=== PATIENT | male | born 1980 | race American Indian/Alaskan Native ===

== ENCOUNTER 2017-01-12 03:23 | Emergency (ER) | payer SELFPAY ==
[2017-01-12 03:45] VITALS: BP 123/85
[2017-01-12 04:30] LABS: Basophils % (Auto) 0.5 % (0.0-1.8); Eosinophils % (Auto) 0.8 % (0.0-4.3); Hematocrit 45.7 % (35.5-45.6); Hemoglobin 15.2 gm/dl (11.8-15.2); Mean Corpuscular HGB Conc 33 % (32-34); Mean Corpuscular Hemoglobin 30 pg (28-32); Mean Corpuscular Volume 91 fl (84-94); Platelet Count 215 K/mm3 (140-440); Red Blood Count 5.04 M/mm3 (3.65-5.03); Red Cell Distribution Width 14.1 % (13.2-15.2); White Blood Count 5.9 K/mm3 (4.5-11.0)
[2017-01-12 04:44] LABS: Alanine Aminotransferase 27 units/L (7-56); Albumin 3.6 g/dL (3.9-5); Albumin/Globulin Ratio 0.8 %; Alkaline Phosphatase 74 units/L (35-129); Anion Gap 17 mmol/L; BUN/Creatinine Ratio 14.16; Bilirubin,Total 0.9 mg/dL (0.1-1.2); Blood Urea Nitrogen 17 mg/dL (9-20); Calcium 9.1 mg/dL (8.4-10.2); Carbon Dioxide 25 mmol/L (22-30); Chloride 97.9 mmol/L (98-107); Glucose 115 mg/dL (75-100); Lipase 33 units/L (13-60); Potassium 4.1 mmol/L (3.6-5.0); Sodium 136 mmol/L (137-145)
--- NOTE | 2017-01-14 01:07 | ED Elopement Review ---
ED Pt Elopement review - Results review Lab results: Laboratory Tests 01/12/17 01/12/17 04:12 04:12 WBC 5.9 RBC 5.04 H Hgb 15.2 Hct 45.7 H MCV 91 MCH 30 MCHC 33 RDW 14.1 Plt Count 215 Lymph % (Auto) 10.5 L Spencer % (Auto) 14.1 H Eos % (Auto) 0.8 Baso % (Auto) 0.5 Lymph # 0.6 L Spencer # 0.8 Eos # 0.0 Baso # 0.0 Seg Neutrophils % 74.1 H Seg Neutrophils # 4.4 Sodium 136 L Potassium 4.1 Chloride 97.9 L Carbon Dioxide 25 Anion Gap 17 BUN 17 Creatinine 1.2 Estimated GFR > 60 BUN/Creatinine Ratio 14.16 Glucose 115 H Calcium 9.1 Total Bilirubin 0.9 AST 29 ALT 27 Alkaline Phosphatase 74 Total Protein 8.0 Albumin 3.6 L Albumin/Globulin Ratio 0.8 Lipase 33 - Call Back decision Pt Call Back Decision: No action required
== END 2017-01-12 04:30 | disposition left against medical advice (07) ==
LOC: ED 03:23
DX: R10.9 Unspecified abdominal pain (principal); Z53.21 Procedure and treatment not carried out due to patient leaving prior to being seen by health care provider
CPT/HCPCS: 36415; 80053; 83690; 85025

== ENCOUNTER 2017-01-12 11:04 | Emergency (ER) | payer SELFPAY ==
[2017-01-12] MEDS ORDERED: NACL 0.9% 1000 ML 1,000 ML IV ONE ×2 (13:43→15:48)
[2017-01-12] MEDS ORDERED: PEPCID IV ONE (13:43)
[2017-01-12] MEDS ORDERED: BENTYL IM ONE (13:43)
[2017-01-12] MEDS ORDERED: ZOFRAN IV ONE (13:43)
[2017-01-12] MEDS ORDERED: NACL ONE (13:44)
--- NOTE | 2017-01-12 13:45 | Emergency Department Report ---
ED General Adult HPI - General Chief complaint: Abdominal Pain Stated complaint: SEVERE ABD PAIN Time Seen by Provider: 01/12/17 13:27 Source: patient, RN notes reviewed, old records reviewed Mode of arrival: Ambulatory Limitations: No Limitations - History of Present Illness Initial comments: This is a 36-year-old male. He is previously unknown to me. He does not have a primary care doctor. Does not have any past medical history, no surgical history. Presents to the ER with nausea, vomiting and diarrhea. Also complains of mild abdominal cramping. Symptoms have been going on since this past Saturday. Today is Saturday. No testicular pain. No irritative or obstructive urinary symptoms. No recent antibiotic use. No testicular pain. Emesis is brown, reddish (when he drinks soup which is red.) he also reports brown, watery stool. There is no bright red blood per rectum. -: Gradual Location: abdomen Severity scale (0 -10): 4 Quality: aching Consistency: intermittent Improves with: none Worsens with: none Associated Symptoms: loss of appetite, malaise, nausea/vomiting, weakness. denies: confusion, chest pain, cough, diaphoresis - Related Data Previous Rx's Medication Instructions Recorded Last Taken Type Ciprofloxacin HCl [Ciprofloxacin 500 mg PO Q12HR #14 tab 01/12/17 Unknown Rx TAB] Dicyclomine [Bentyl] 10 mg PO QID PRN #20 capsule 01/12/17 Unknown Rx Metoclopramide [Reglan] 10 mg PO QID PRN #30 tablet 01/12/17 Unknown Rx metroNIDAZOLE [Flagyl] 500 mg PO Q8HR #21 tablet 01/12/17 Unknown Rx Allergies Allergy/AdvReac Type Severity Reaction Status Date / Time No Known Allergies Allergy Verified 01/12/17 03:40 ED Review of Systems ROS: Stated complaint: SEVERE ABD PAIN Other details as noted in HPI Constitutional: malaise. denies: fever Eyes: denies: vision change ENT: denies: throat pain, epistaxis Respiratory: denies: cough Cardiovascular: denies: chest pain Gastrointestinal: nausea, vomiting, diarrhea Genitourinary: denies: urgency, dysuria, testicular pain Musculoskeletal: back pain Skin: denies: rash, lesions Neurological: denies: headache Psychiatric: denies: anxiety ED Past Medical Hx - Past Medical History Previous Medical History?: No - Surgical History Past Surgical History?: No - Social History Smoking Status: Never Smoker Substance Use Type: None - Medications Home Medications: Home Medications Medication Instructions Recorded Confirmed Last Taken Type Ciprofloxacin HCl [Ciprofloxacin 500 mg PO Q12HR #14 tab 01/12/17 Unknown Rx TAB] Dicyclomine [Bentyl] 10 mg PO QID PRN #20 capsule 01/12/17 Unknown Rx Metoclopramide [Reglan] 10 mg PO QID PRN #30 tablet 01/12/17 Unknown Rx metroNIDAZOLE [Flagyl] 500 mg PO Q8HR #21 tablet 01/12/17 Unknown Rx ED Physical Exam - General Limitations: No Limitations General appearance: alert, in no apparent distress - Head Head exam: Present: atraumatic, normocephalic - Eye Eye exam: Present: normal appearance, EOMI. Absent: nystagmus - ENT ENT exam: Present: normal exam, normal orophraynx, mucous membranes moist, normal external ear exam - Neck Neck exam: Present: normal inspection, full ROM. Absent: tenderness, meningismus - Respiratory Respiratory exam: Present: normal lung sounds bilaterally. Absent: respiratory distress, wheezes, rales, rhonchi, stridor, chest wall tenderness - Cardiovascular Cardiovascular Exam: Present: regular rate, normal rhythm, normal heart sounds. Absent: bradycardia, tachycardia, irregular rhythm, systolic murmur, diastolic murmur, rubs, gallop - GI/Abdominal GI/Abdominal exam: Present: soft, tenderness, normal bowel sounds, other (there is mild lower abdominal tenderness, with no rebound, guarding or peritoneal signs.). Absent: distended, guarding, rebound, pulsatile mass - Rectal Rectal exam: Present: normal inspection, normal rectal tone, heme (-) stool, other (during rectal examination, I am escorted by ER fiberglass quality technician Radha Streeter) - exam: Present: normal inspection, testicular tenderness, other (there is no testicular tenderness. There is no cremasteric reflex bilaterally. His normal testicular lie bilaterally.) External exam: Present: normal external exam - Extremities Exam Extremities exam: Present: normal inspection, full ROM, normal capillary refill. Absent: tenderness, pedal edema, joint swelling, calf tenderness - Back Exam Back exam: Present: normal inspection, full ROM. Absent: tenderness, CVA tenderness (R), CVA tenderness (L), muscle spasm, paraspinal tenderness, vertebral tenderness - Neurological Exam Neurological exam: Present: alert, oriented X3, normal gait, other (Extraocular movements intact. Tongue midline. No facial droop. Facial sensation intact to light touch in the V1, V2, V3 distribution bilaterally. 5 and 5 strength in 4 extremities.. Sensation is intact to light touch in 4 extremities.). Absent : motor sensory deficit - Psychiatric Psychiatric exam: Present: normal affect, normal mood - Skin Skin exam: Present: warm, dry, intact, normal color. Absent: rash ED Course Vital Signs 01/12/17 01/12/17 01/12/17 11:32 13:13 13:14 Temperature 98.8 F 98.4 F Pulse Rate 89 73 Respiratory 20 16 16 Rate Blood Pressure 137/95 Blood Pressure 109/73 [Left] O2 Sat by Pulse 98 100 100 Oximetry 01/12/17 15:16 Temperature Pulse Rate 66 Respiratory 16 Rate Blood Pressure Blood Pressure 94/47 [Left] O2 Sat by Pulse 100 Oximetry - Reevaluation(s) Reevaluation #1: 01/12/17 16:05 Differential diagnosis: Inflammatory bowel disease, colitis, diverticulitis Assessment and plan: 36-year-old male with complaint of nausea, vomiting, diarrhea, mild abdominal tenderness, CT scan demonstrates nonspecific colitis. He is afebrile, tolerating liquid feeds, abdomen is soft on repeat examination, ambulates with a steady gait. Patient will be started on empiric antibiotic therapy, and be given nonnarcotic pain medication, nausea medication. Case is discussed with gastroenterology, Dr. barros, who agrees with this plan of care, states he can follow the patient up. Recommended 7 days of antibiotics. Patient will be discharged at this time, understands return precautions, understands the importance of outpatient follow-up with gastroenterology. ED Medical Decision Making - Lab Data Vital Signs 01/12/17 01/12/17 01/12/17 11:32 13:13 13:14 Temperature 98.8 F 98.4 F Pulse Rate 89 73 Respiratory 20 16 16 Rate Blood Pressure 137/95 Blood Pressure 109/73 [Left] O2 Sat by Pulse 98 100 100 Oximetry 01/12/17 15:16 Temperature Pulse Rate 66 Respiratory 16 Rate Blood Pressure Blood Pressure 94/47 [Left] O2 Sat by Pulse 100 Oximetry - Radiology Data Radiology results: report reviewed, image reviewed CT scan of the abdomen and pelvis with IV contrast: Normal appearing liver, gallbladder, adrenals, pancreas, spleen. Very small fat-containing umbilical hernia. Normal-appearing stomach and duodenum. No evidence of bowel distention. Nonspecific slight free pelvic fluid. Borderline fat stranding adjacent to the seminal vesicles. There is nonspecific mural thickening in the proximal rectum and throughout the sigmoid colon. There is no definite diverticular disease. There is moderate real thickening throughout the descending colon. Trace free fluid noted in the pericolic gutter, there is slight mural thickening in the mid and distal transverse colon, and moderate mural thickening noted in the splenic flexure. Slight flat stranding is noted. No evidence of diverticular disease. Does not discretely identified. There is no pericecal inflammation. Impression: Diffuse nonspecific mural thickening present from the transverse colon to the proximal rectum. Findings may reflect edema, inflammation, nonspecific colitis. Consider also inflammatory bowel disease. Critical care attestation.: If time is entered above; I have spent that time in minutes in the direct care of this critically ill patient, excluding procedure time. ED Disposition Clinical Impression: Nausea vomiting and diarrhea Disposition: DISCHARGED TO HOME OR SELFCARE Is pt being admited?: No Does the pt Need Aspirin: No Condition: Stable Instructions: Acute Nausea and Vomiting (ED), Ulcerative Colitis (ED) Additional Instructions: Take the pain medication, nausea medication, antibiotic therapy as directed. Do not consume alcohol while taking the antibiotic therapy. Follow-up with gastroenterology, Dr. barros within the next week. [facility] as a patient service hotline: [email or web address].TO.[facility] ([phone] ) It is very important to closely follow up with outpatient gastroenterology for further evaluation and management. Not following up in a timely fashion may result an undiagnosed tumor/cancer/malignancy. Return to the ER right away with new pain, worsened pain, migration of pain, fevers or chills, nausea or vomiting, inability to tolerate liquid feeds. Cultures were sent today of the stool, please have your primary care doctor contact the medical records department to obtain culture results. Referrals: PAM ARAUJO MD [Primary Care Provider] - 3-5 Days SARAH BARROS MD [Staff Physician] - 3-5 Days
--- NOTE | 2017-01-12 15:04 | Cat Scan Report ---
FINAL REPORT EXAM: CT ABDOMEN PELVIS W CON HISTORY: rlq pain n/v TECHNIQUE: CT examination of the ABDOMEN after IV contrast CT examination of the PELVIS after IV contrast PRIORS: None. FINDINGS: Normal-appearing liver, gallbladder, adrenals, pancreas, and spleen. Intact normal caliber abdominal aorta and IVC. Normal-appearing kidneys. No evidence of hydronephrosis or ureteral distention. Very small fat containing umbilical hernia. Normal-appearing stomach and duodenum. No small bowel distention in the abdomen and pelvis. Nonspecific slight pelvic free fluid. Nonspecific prominence of the seminal vesicles and prostate. Borderline fat stranding adjacent to the seminal vesicles. Normal-appearing urinary bladder. Nonspecific mural thickening in the proximal rectum and throughout the sigmoid colon. No definite diverticular disease. Moderate mural thickening throughout the descending colon. Trace free fluid in the left pericolic gutter. Slight mural thickening in the mid and distal transverse colon and moderate mural thickening in the splenic flexure. Slight fat stranding and minimal free fluid adjacent to the splenic flexure. Again, this is without evidence of diverticular disease. No evidence of free air or colonic distention. Normal-appearing cecum and terminal ileum. The appendix is not separately identified. There is no pericecal inflammation. IMPRESSION: Diffuse nonspecific mural thickening is present from transverse colon to the proximal rectum. There is adjacent slight fat stranding and slight free fluid. Findings may reflect edema, inflammation, or nonspecific colitis. Consider also inflammatory bowel disease Nonspecific prominence of the prostate and seminal vesicles. This may also be from edema, inflammation, or infection, such as prostatitis
[2017-01-12 15:18] VITALS: BP 94/47
[2017-01-12] MEDS ORDERED: LEVAQUIN PO ONE (16:08)
[2017-01-12] MEDS ORDERED: FLAGYL PO ONE (16:08)
== END 2017-01-12 17:12 | disposition home or self-care (01) ==
LOC: ED 11:04
DX: R11.2 Nausea with vomiting, unspecified (principal); R19.7 Diarrhea, unspecified
CPT/HCPCS: 74177; 82271; 96361; 96372; 96374; 96375; 99284; J0500; J2405; J7030; Q9967